=== PATIENT | female | born 1995 | race Two or more races ===

== ENCOUNTER 2024-07-29 18:25 | Emergency (ER) | payer MEDICAID, SELFPAY ==
[2024-07-29 18:28] VITALS: PULSE 60; RESP 18; O2SAT 99; BMI 20.7
--- NOTE | 2024-07-29 19:21 | EDNOTE_ITS ---
ED General RME/HPI General Chief complaint: Abdominal Pain Stated complaint: ABD PAIN Time Seen by Provider: 07/29/24 19:14 Arrival date/time: 07/29/24 18:25 RME / HPI RME / HPI narrative: This section includes all my notes and documentations, including HPI, PE, and ED course. Osman Krishnamurthy MD HPI: 29yo female presents to the ED for a chief complaint of lower abdominal pain x 2 hours. Patient states she was sitting and squatting when she developed sudden, severe lower abdominal pain. She denies any fever, chills, N/V or any other associated symptoms. No further complaints reported. ROS: All negative except as documented in HPI. Physical Exam: General: Alert and oriented. Appears uncomfortable. Eyes: Conjunctivae and lids clear. ENT: No nasal congestion. Neck: Supple. Heart: RRR. Lungs: No respiratory distress. Good air movement. No rhonchi, wheezing, rales. Abdomen: Soft and nontender. Legs: No clubbing, cyanosis, edema. Skin: Warm and dry. Neuro: Alert and oriented X 3. I reviewed all diagnostic test results. My review of the US report is empty gestational sac 5 4/7 weeks. Blood tests and urine tests unremarkable, except hCG 7081. At this point, diagnoses include threatened miscarriage. Recommended expectant management. Based on my best medical judgment, made decision no further evaluation or treatment indicated at this time. Patient understands and agrees to the discharge instructions customized and printed, see below. Discharge Instructions from Dr. Krishnamurthy: 1. After evaluation, you are not . But we can't see the baby on the ultrasound, may be too early. 2. Today, your GA is 7 weeks based on your last menstruation of 06/17/2024. And 5 4/7 weeks based on the ultrasound. 3. Only time will determine whether you will have a successful or you will have a miscarriage. If your symptoms stop, you can have a successful . If your symptoms worsen and you start bleeding, you may have a miscarriage. If you have a miscarriage, unfortunately we won?t be able to save the baby because it?s too early. Under 20 weeks, unfortunately we can?t help. 4. See a private doctor on 07/31/24. Ask for help with repeat ultrasound in 1 to 2 weeks. And repeat beta-hCG (hormone level) which doubles every 2 to 3 days in normal . Your level today was 7081. 5. Seek immediate medical care for severe bleeding (soaking more than 3 pads per hour), intolerable pain, or with any concerns. Osman Krishnamurthy MD Related Data Previous Rx's ?Medication ?Instructions ?Recorded docusate sodium 100 mg capsule 100 mg PO BID #40 caps 11/11/20 (Colace) hydrocodone 5 mg-acetaminophen 325 1 tab PO Q6H PRN pain (scale score 11/11/20 mg tablet 7-10) #15 tabs ibuprofen 600 mg tablet 600 mg PO Q8H PRN pain (scale 11/11/20 score 4-6) #15 tabs Allergies Allergy/AdvReac Type Severity Reaction Status Date / Time No Known Allergies Allergy Verified 11/11/20 12:29 Review of Systems Review of Systems Systems Reviewed: All systems reviewed, normal except as documented Past Medical History Past Medical History NEUROLOGIC: Negative Neurological Disorders or Seizures CARDIAC: Negative Cardiac Disorders, Congestive Heart Failure, Edema, Cellulitis or Varicose Veins RESPIRATORY: Negative Chronic Obstructive Pulmonary Disease (COPD), Tuberculosis, Pulmonary Embolism or Sleep Apnea GASTROINTESTINAL: Negative Gastrointestinal Disorders or Hepatitis GENITOURINARY: Negative Genitourinary Disorders or Renal Disease REPRODUCTIVE: Positive Previous Pregnancies (X2) MUSCULOSKELETAL: Negative Musculoskeletal Disorders ENDOCRINE: Negative Endocrine Disorders, Diabetes Mellitus Type 1 or Diabetes Mellitus Type 2 HEMATOLOGIC: Negative Blood Disorders OTHER HISTORY: Positive Chicken Pox; Negative Hospitalization, Autoimmune Disease, Down Syndrome, Developmental Delay, Shingles, Falls, Blood Transfusions, Blood Transfusion Reaction, Anesthesia Reactions, Organ Transplant, Chemotherapy, Radiation Therapy, Hyperbaric Therapy, MRSA, VRSA, Vancomycin-Resistant Enterococci, Human Immunodeficiency Virus (HIV), Measles, Mumps, Rubella (Kazakh Measles), Pertussis, Clostridium Difficile or Cancer Family History FAMILY HISTORY: Positive Family Respiratory Disorders (SISTER (ASTHMA)) and Family Surgery (MOTHER); Negative Family Psychiatric Problems, Family Cardiac Disorders, Family Gastrointestinal Problems, Family Cancer or Family Anesthesia Reaction Surgical History SURGICAL: Positive Section (X2); Negative Pacemaker or Organ Transplant Social History SMOKING STATUS: Current every day smoker ED Exam Narrative Physical exam: As noted in HPI. Course Quality Measures none Orders Category Date Time Status US OB <= 14 weeks fetus Stat Exams 07/29/24 20:51 Completed Amylase Stat Lab 07/29/24 19:47 Completed Beta HCG,Quantitative Stat Lab 07/29/24 19:47 Completed CBC Stat Lab 07/29/24 19:47 Completed CMP [Comprehensive Metabolic Panel] Stat Lab 07/29/24 19:47 Completed HCG,Qualitative Serum Stat Lab 07/29/24 19:47 Completed Lipase Stat Lab 07/29/24 19:47 Completed Magnesium Stat Lab 07/29/24 19:47 Completed UA, C/S IF [Urinalysis, C/S if Indicated] Stat Lab 07/29/24 19:25 Ordered Ketorolac Inj [Toradol Inj] Med 07/29/24 19:24 Discontinued 30 mg IVP X1 ONE Morphine Inj Med 07/29/24 19:24 Discontinued 4 mg IVP X1 ONE Ondansetron Inj [Zofran Inj] Med 07/29/24 19:24 Discontinued 4 mg IV X1 ONE Sodium Chloride 0.9% 1000 ml [Ns] 1,000 ml Med 07/29/24 19:24 Discontinued IV 999 mls/hr Vital Signs Vital signs: Vital Signs Temperature 98.4 F 07/29/24 20:01 Pulse Rate 71 07/29/24 20:01 Respiratory Rate 18 07/29/24 20:01 Blood Pressure 107/66 07/29/24 20:01 Pulse Oximetry (%) 99 07/29/24 20:01 Oxygen Delivery Method Room Air 07/29/24 20:01 [facility] Patient data External records reviewed:: [facility] previous records (Per chart review, patient has no relevant previous ED visits or admissions to this facility.) Clinical information provided by:: patient Social determinants that could affect healthcare access:: none Patient has the following chronic illnesses:: none How is presenting disease/condition affected by chronic disease/condition?: no chronic disease Evaluation data The following diagnostics were reviewed and interpreted by me:: lab results and radiology exam(s) Lab and/or radiology exams considered but not ordered:: none Interpretation Summary: Threatened miscarriage Medications Medications considered but not ordered:: none Medication administrations:: Medication Administration History Discontinued Medications Sodium Chloride (Ns) 1,000 mls @ 999 mls/hr IV .Q1H1M ONE Stop: 07/29/24 20:24 Last Admin: 07/29/24 20:58 Dose: Not Given Documented By: COCO Non-Admin Reason: Discontinued Ketorolac Tromethamine (Ketorolac Inj 30 Mg/Ml Vial) 30 mg IVP X1 ONE Stop: 07/29/24 19:25 Last Admin: 07/29/24 20:50 Dose: Not Given Documented By: AC Non-Admin Reason: Cancelled by Provider Morphine Sulfate (Morphine Sulf Inj 10 Mg/Ml Vial) 4 mg IVP X1 ONE Stop: 07/29/24 19:25 Last Admin: 07/29/24 20:58 Dose: Not Given Documented By: FC Non-Admin Reason: Discontinued Ondansetron HCl (Ondansetron Inj 2 Mg/Ml Inj 2 Ml) 4 mg IV X1 ONE; Protocol Stop: 07/29/24 19:25 Last Admin: 07/29/24 20:58 Dose: Not Given Documented By: FC Non-Admin Reason: Discontinued None Consultations Consultation(s) initiated? (list below): No Diagnosis Differential Diagnosis ED Complaint MDM: threatened miscarriage, UTI, , musculoskeletal pain Most likely diagnosis given after review of the tests above:: threatened miscarriage Admission Indicated Admission indicated?: not indicated Explain why admission is indicated or not indicated:: Admission criteria not met. Admission Request Was there a request for admission?: No Disposition Plan Disposition Plan: Discharge Discharge Attestation Discharge Attestation: The patient and all family members were given an opportunity to ask questions and understood the discharge instructions. Discharge instructions specifically effects, indications for sooner follow up or return to the emergency department, and the expected course of current diagnosis. Patient condition: Stable Medical Decision Making MDM Narrative MDM Narrative: Scribe Attestation: 07/29/24 Amina Jorgensen am scribing for and in the presence of Dr. Krishnamurthy. Differential Diagnosis Differential Diagnosis: threatened miscarriage, UTI, , musculoskeletal pain Lab Data 07/29/24 19:47 07/29/24 19:47 Labs: Lab Results 07/29/24 Range/Units 19:47 WBC 17.9 H (3.6-11.0) Thou/mm3 RBC 4.46 (4.00-5.20) Miln/mm3 Hgb 14.1 (12.0-16.0) g/dL Hct 40.5 (36.0-46.0) % MCV 91 (80-100) fL MCH 31.6 (25.0-35.0) pg MCHC 34.8 (31.0-37.0) g/dl RDW Std Deviation 39.8 (36.4-46.3) fL Plt Count 262 (140-440) Thou/mm3 Neut % (Auto) 82 H (37-80) % Lymph % (Auto) 13 (10-50) % Carson % (Auto) 4 (0-12) % Eos % (Auto) 1 (0-10) % Baso % (Auto) 0 (0-2.5) % Neut # (Auto) 14.6 H (1.8-7.7) Thou/mm3 Lymph # (Auto) 2.3 (1.0-4.8) Thou/mm3 Carson # (Auto) 0.7 (0.0-0.8) Thou/mm3 Eos # (Auto) 0.2 (0.0-0.5) Thou/mm3 Baso # (Auto) 0.1 (0.0-0.2) Thou/mm3 Immature Gran # (Auto) 0.08 H (0.00-0.00) Thou/mm3 Absolute Nucleated RBC 0.00 (0.00-0.00) Thou/mm3 Immature Gran % 0 (0-0) % Nucleated RBC % 0 (0) /100 WBC Sodium 139 (136-145) mMol/L Potassium 3.7 (3.4-5.1) mMol/L Chloride 106 (98-107) mMol/L Carbon Dioxide 25.1 (20.0-31.0) mMol/L Anion Gap 8 (7-16) BUN 10 (9-23) mg/dL Creatinine 0.9 (0.6-1.3) mg/dL Estim Creat Clear Calc 81.1 (>60) mL/min eGFR > 60 (60 - ) See Note BUN/Creatinine Ratio 11 L (12-20) Ratio Glucose 116 H (74-106) mg/dL Calculated Osmolality 277 (275-295) Calcium 9.7 (8.3-10.6) mg/dL Corrected Calcium 9.7 (8.5-10.1) mg/dL Magnesium 2.1 (1.6-2.6) mg/dL Total Bilirubin 0.5 (0.3-1.2) mg/dL AST 13 (0-34) U/L ALT 16 (10-49) U/L Alkaline Phosphatase 42 L (46-116) U/L Total Protein 6.9 (5.7-8.2) gm/dL Albumin 4.6 (3.5-5.0) gm/dL Globulin 2.3 (2.3-3.5) gm/dL Albumin/Globulin Ratio 2.0 (1.2-2.2) Amylase 80 (30-118) U/L Lipase 39 (12-53) U/L HCG, Qual Positive Beta HCG, Quant 7081 (<5.0) mIU/mL Discharge Plan Plan Patient Disposition: HOME (Self Care) Prescriptions/Referrals Prescriptions/Med Rec: No Action hydrocodone-acetaminophen 5-325 mg tablet 1 tab PO Q6H MDD 4 PRN (Reason: pain (scale score 7-10)) Qty: 15 0RF docusate sodium [Colace] 100 mg capsule 100 mg PO BID Qty: 40 0RF ibuprofen 600 mg tablet 600 mg PO Q8H PRN (Reason: pain (scale score 4-6)) Qty: 15 0RF Referrals: Kalpesh Hogan MD [Primary Care Provider] - In 1 week Problem List Clinical Impression: Threatened miscarriage Patient/Caregiver Discharge Instructions Discharge Activity: activity as tolerated Education Materials: ED Possible Miscarriage ... Additional Instructions: Discharge Instructions from Dr. Krishnamurthy: 1.? ? ? After evaluation, you are not . But we can't see the baby on the ultrasound, may be too early. 2.? ? ? Today, your GA is 7 weeks based on your last menstruation of 06/17/2024. And 5 4/7 weeks based on the ultrasound. 3.? ? ? Only time will determine whether you will have a successful or you will have a miscarriage.? If your symptoms stop, you can have a successful .? If your symptoms worsen and you start bleeding, you may have a miscarriage.? If you have a miscarriage, unfortunately we won?t be able to save the baby because it?s too early.? Under 20 weeks, unfortunately we can?t help.?? 4.? ? ? See a private doctor on 07/31/24. Ask for help with repeat ultrasound in 1 to 2 weeks. And repeat beta-hCG (hormone level) which doubles every 2 to 3 days in normal . Your level today was 7081. 5.? ? ? Seek immediate medical care for severe bleeding (soaking more than 3 pads per hour), intolerable pain, or with any concerns.? Print Language: Chinese Stand Alone Forms: Priscilla Award Info., Patient Portal Info Letter
[2024-07-29 20:00] LABS: Basophils # (Auto) 0.1 Thou/mm3 (0.0-0.2); Basophils % (Auto) 0 % (0-2.5); Eosinophils # (Auto) 0.2 Thou/mm3 (0.0-0.5); Eosinophils % (Auto) 1 % (0-10); Hematocrit 40.5 % (36.0-46.0); Hemoglobin 14.1 g/dL (12.0-16.0); Immature Granulocytes % (Auto) 0 % (0-0); Immature Granulocytes Auto 0.08 Thou/mm3 (0.00-0.00); Lymphocytes # (Auto) 2.3 Thou/mm3 (1.0-4.8); Lymphocytes % (Auto) 13 % (10-50); Mean Corpuscular HGB Conc 34.8 g/dl (31.0-37.0); Mean Corpuscular Hemoglobin 31.6 pg (25.0-35.0); Mean Corpuscular Volume 91 fL (80-100); Monocytes # (Auto) 0.7 Thou/mm3 (0.0-0.8); Monocytes % (Auto) 4 % (0-12); Neutrophils # (Auto) 14.6 Thou/mm3 (1.8-7.7); Neutrophils % (Auto) 82 % (37-80); Nucleated Red Blood Cell % 0 /100 WBC (0); Platelet Count 262 Thou/mm3 (140-440); RDW Standard Deviation 39.8 fL (36.4-46.3); Red Blood Count 4.46 Miln/mm3 (4.00-5.20); White Blood Count 17.9 Thou/mm3 (3.6-11.0)
[2024-07-29 20:01] VITALS: BP 107/66; PULSE 71; RESP 18; TEMP 36.9; O2SAT 99
[2024-07-29 20:29] LABS: Alanine Aminotransferase 16 U/L (10-49); Albumin, Serum 4.6 gm/dL (3.5-5.0); Alkaline Phosphatase 42 U/L (46-116); Amylase 80 U/L (30-118); Anion Gap 8 (7-16); Aspartate Amino Transferase 13 U/L (0-34); BUN/Creatinine Ratio 11 Ratio (12-20); Bilirubin,Total 0.5 mg/dL (0.3-1.2); Blood Urea Nitrogen 10 mg/dL (9-23); Calcium 9.7 mg/dL (8.3-10.6); Calcium (Corrected) 9.7 mg/dL (8.5-10.1); Carbon Dioxide 25.1 mMol/L (20.0-31.0); Chloride 106 mMol/L (98-107); Creatinine (Component) 0.9 mg/dL (0.6-1.3); Estimated Creatinine Clearance 81.1 mL/min (>60); Globulin 2.3 gm/dL (2.3-3.5); Glucose 116 mg/dL (74-106); Lipase 39 U/L (12-53); Magnesium 2.1 mg/dL (1.6-2.6); Osmolality,Calculated 277 (275-295); Potassium 3.7 mMol/L (3.4-5.1); Sodium 139 mMol/L (136-145); Total Protein 6.9 gm/dL (5.7-8.2); eGFR > 60 See Note
[2024-07-29 20:30] LABS: HCG,Qualitative Serum Positive
--- NOTE | 2024-07-29 20:51 | XR_ITS ---
Examination: Complete OB ultrasound, less than 14 weeks, transabdominal Date and time of exam: July 29, 2024 1029 hrs. Indications: Severe pelvic pain and pressure today Technique: Obstetrical ultrasound images less than 14 weeks performed via transabdominal imaging Findings: Uterus 10.2 x 4.4 x 5.7 cm Intrauterine gestational sac 0.83 cm corresponds to 5 weeks 4 days gestational age No pole, no cardiac activity 8 x 5 mm subchorionic hemorrhage Ovaries obscured by bowel gas Impression: Empty intrauterine gestational sac corresponding to 5 weeks 4 days gestational age Recommend short-term follow-up transvaginal pelvic sonography to confirm viability
[2024-07-29 22:00] LABS: Beta HCG,Quantitative 7081 mIU/mL (<5.0)
[2024-07-29 23:59] LABS: Collection Type, Urine Clean Catch; Squamous Epithelial Cell,Urine 0 /hpf (0-5)
[2024-07-30 00:09] LABS: Bacteria,Urine Rare; Bilirubin,Urine Negative (Negative); Blood,Urine Trace (Negative); Clarity,Urine Clear (Clear/Hazy); Color,Urine Colorless (Lt Yel-Yel); Culture Indicated,Urine Not Indicated; Glucose, Urine Negative (Negative); Ketones,Urine Negative (Negative); Leukocyte Esterase,Urine Negative (Negative); Nitrite,Urine Negative (Negative); Protein,Urine Negative (Neg - Trace); RBC,Urine 1 /hpf (0-3); Specific Gravity,Urine 1.001 (1.001-1.035); Urobilinogen,Urine Negative mg/dL (0.0-1.0); WBC,Urine < 1 /hpf (0-5)
== END 2024-07-29 23:58 | disposition home or self-care (01) ==
PROVIDERS: Emergency Provider Emergency Medicine; PCP Family Medicine
DX: O20.0 Threatened abortion (principal); Z3A.01 Less than 8 weeks gestation of pregnancy
CPT/HCPCS: 36415; 76801; 80053; 81001; 82150; 83690; 83735; 84702; 84703; 85025; 99284

== ENCOUNTER 2025-04-13 15:48 | Emergency (ER) | payer MEDICAID, SELFPAY ==
[2025-04-13 15:49] VITALS: BMI 21.6
[2025-04-13 16:07] VITALS: BP 124/68; PULSE 88; RESP 19; TEMP 37.2; O2SAT 96
--- NOTE | 2025-04-13 17:16 | EDNOTE_ITS ---
Upper Extremity Injury RME/HPI General Chief Complaint: Hand/Wrist Problems Stated Complaint: CUT RT HAND AT 0700 YESTERDAY AM Time Seen by Provider: 04/13/25 17:01 Arrival date/time: 04/13/25 15:48 RME / HPI RME / HPI narrative: 29-year-old female patient came in for evaluation regarding laceration to the right hand, incident happened yesterday morning around 7 AM patient sustained 4 cm gaping laceration to the right hand, between the 1st and 2nd finger, patient is able to bend and extend the fingers and thumb without any difficulty. Patient went to PCP, and dressing was done and was sent to us for further evaluation. Denies any other injury tetanus vaccination is up-to-date. Related Data Previous Rx's ?Medication ?Instructions ?Recorded docusate sodium 100 mg capsule 100 mg PO BID #40 caps 11/11/20 (Colace) hydrocodone 5 mg-acetaminophen 325 1 tab PO Q6H PRN pa in (scale score 11/11/20 mg tablet 7-10) #15 tabs ibuprofen 600 mg tablet 600 mg PO Q8H PRN pain (scal e 11/11/20 score 4-6) #15 tabs cephalexin 500 mg capsule 500 mg PO Q8H 7 days #21 cap s 04/13/25 ibuprofen 600 mg tablet 600 mg PO Q8H PRN pain #30 t abs 04/13/25 Allergies Allergy/AdvReac Type Severity Reaction Status Date / Time No Known Allergies Allergy Verified 04/13/25 15:51 Review of Systems Review of Systems Narrative Review of Systems: Review of system reviewed and within normal limits except mentioned in HPI ED Exam Narrative Physical exam: VITAL SIGNS: Reviewed. GENERAL APPEARANCE: Alert and interactive, follows commands, no acute distress, HEAD AND FACE: Non-traumatic. ENT: PERRL, pink conjunctivitis, eyelid no trauma, Mucous membrane moist. NECK: Supple, nontender, no nuchal rigidity. CHEST: No tenderness, no crepitus, no paradoxical movement, no retractions. LUNGS: Clear, well ventilated, symmetric, no rales, no wheezing, no ronchi, no stridor, good breath sounds bilaterally. HEART: Regular rate, regular rhythm, no murmur, no gallops. ABDOMEN: Soft, positive bowel sounds, nondistended, no guarding, nontender, no rebound, no masses, RECTAL: Deferred. GENITAL: Deferred. NEUROLOGICAL: Gross motor function intact sensory function intact, Appropriate for age. MUSCULOSKEL+1 cm nongaping laceration, right hand, between 2nd and 1st finger, full range of motion of the fingers no active bleeding noted no drainage noted, distal neurovascular status intact SKIN: Color pink, dry, no rash, no lacerations, no abrasions, no contusions. LYMPHATICS: Deferred. Course Quality Measures none Vital Signs Vital signs: Vital Signs Temperature 99.0 F 04/13/25 16:07 Pulse Rate 88 04/13/25 16:07 Respiratory Rate 19 04/13/25 16:07 Blood Pressure 124/68 04/13/25 16:07 Pulse Oximetry (%) 96 04/13/25 16:07 Oxygen Delivery Method Room Air 04/13/25 16:07 Extremity Injury MDM Narrative MDM Narrative:: 29-year-old female patient came in for evaluation regarding laceration to the right hand, incident happened yesterday morning around 7 AM patient sustained 4 cm gaping laceration to the right hand, between the 1st and 2nd finger, patient is able to bend and extend the fingers and thumb without any difficulty. Patient went to PCP, and dressing was done and was sent to us for further evaluation. Denies any other injury tetanus vaccination is up-to-date. Repair and suturing primarily is not indicated at this time patient's laceration is more than 34 hours.. Patient laceration will heal on secondary intention. I did the dressing, patient was also covered with Keflex prophylactic. Stable for discharge home Patient data External records reviewed:: None Clinical information provided by:: patient Social determinants that could affect healthcare access:: none Patient has the following chronic illnesses:: None How is presenting disease/condition affected by chronic disease/condition?: no chronic disease Evaluation data The following diagnostics were reviewed and interpreted by me:: other (specify) (None) Lab and/or radiology exams considered but not ordered:: None Interpretation Summary: Bacitracin dressing Medications / Prescriptions Medications or Prescriptions considered but not ordered:: None Medication administrations:: None Consultations Consultation(s) initiated? (list below): No Diagnosis Upper Extremity Injury Differential Diagnosis: other (Wound check, hand lacera tion old,) Most likely diagnosis given after review of the tests above:: Wound check, hand laceration old Admission Indicated Admission indicated?: not indicated Admission Request Was there a request for admission?: No Disposition Plan Disposition Plan: Discharge Discharge Attestation Discharge Attestation: The patient was given an opportunity to ask questions and understood the discharge instructions. Discharge instructions specifically effects, indications for sooner follow up or return to the emergency department, and the expected course of current diagnosis. Patient condition: Stable Discharge Plan Plan Patient Disposition: HOME (Self Care) Discharge Disposition comment: Stable Prescriptions/Referrals Prescriptions/Med Rec: New cephalexin 500 mg capsule 500 mg PO Q8H 7 Days Qty: 21 0RF ibuprofen 600 mg tablet 600 mg PO Q8H PRN (Reason: pain) Qty: 30 0RF No Action hydrocodone-acetaminophen 5-325 mg tablet 1 tab PO Q6H MDD 4 PRN (Reason: pain (scale score 7-10)) Qty: 15 0RF docusate sodium [Colace] 100 mg capsule 100 mg PO BID Qty: 40 0RF ibuprofen 600 mg tablet 600 mg PO Q8H PRN (Reason: pain (scale score 4-6)) Qty: 15 0RF Referrals: Kalpesh Hogan MD [Primary Care Provider, Family Practice] - In 1 week Problem List Clinical Impression: Visit for wound check, Hand laceration Patient/Caregiver Discharge Instructions Discharge Activity: activity as tolerated Education Materials: ED Laceration, Old: Not Sutured Additional Instructions: Thank you for the opportunity for serving you today. You are stable for discharged . You are advised to: Follow-up with your PCP in 1 to 2 days Return to ED for worsening of symptoms Increase oral fluids Take medication as prescribed Daily dressing with bacitracin as needed. Print Language: Gibraltarian Stand Alone Forms: Priscilla Award Info., Patient Portal Info Letter
== END 2025-04-13 17:27 | disposition home or self-care (01) ==
PROVIDERS: Emergency Provider Emergency Medicine; PCP Family Medicine
DX: S61.411A Laceration without foreign body of right hand, initial encounter (principal); W45.8XXA Other foreign body or object entering through skin, initial encounter
CPT/HCPCS: 99281